=== PATIENT | female | born 1945 | race Caucasian/White ===

== ENCOUNTER → 2018-02-27 | Outpatient (CLI) | payer MEDICARE, OTHER ==
[~2018-02-27] MED LIST: ALL DAY ALLERGY10 M3 PO; ATIVAN1 MG PO; BUTALB-APAP-CA1 EACH PO; FLEXERIL PO; FLONASE 0.05%50 MCG NASAL; LEVAQUIN 750 M750 MG PO; LIPITOR 20 MG T20 M1 PO; NEPHROCAPS SOFT1 CAP PO; NORTRIPTYLINE H25 M3 PO; PAXIL10 MG PO; PREDNISONE 10 M10 MG PO; PULMICORT0.5 MG/22 INH; TRIAMTERENE-HC1 EAC3 PO; VITAMIN D1000 UNI1 PO; ZOFRAN ODT4 MG PO
== END ==
LOC: M.RAD 10:11
DX: M47.894 Other spondylosis, thoracic region (principal); M47.892 Other spondylosis, cervical region; J84.10 Pulmonary fibrosis, unspecified; M48.02 Spinal stenosis, cervical region

== ENCOUNTER 2018-07-16 13:43 | Inpatient (IN) | payer MEDICARE, OTHER ==
[~2018-07-16] VITALS: Ht 162.6 cm; Wt 81.6 kg
[2018-07-16 13:55] VITALS: BP 178/89
[2018-07-16] MEDS ORDERED: LIPITOR 20 MG T20 M1 PO (14:11)
[2018-07-16] MEDS ORDERED: NEPHROCAPS SOFT1 CAP PO (14:11)
[2018-07-16] MEDS ORDERED: ALL DAY ALLERGY10 M3 PO (14:12)
[2018-07-16] MEDS ORDERED: BUTALB-APAP-CA1 EACH PO (14:12)
[2018-07-16] MEDS ORDERED: PULMICORT0.5 MG/22 INH (14:12)
[2018-07-16] MEDS ORDERED: VITAMIN D1000 UNI1 PO (14:16)
[2018-07-16] MEDS ORDERED: FLONASE 0.05%50 MCG NASAL (14:17)
[2018-07-16] MEDS ORDERED: FLEXERIL PO (14:17)
[2018-07-16] MEDS ORDERED: ATIVAN1 MG PO (14:18)
[2018-07-16] MEDS ORDERED: NORTRIPTYLINE H25 M3 PO (14:19)
[2018-07-16] MEDS ORDERED: PAXIL10 MG PO (14:19)
[2018-07-16] MEDS ORDERED: TRIAMTERENE-HC1 EAC3 PO (14:19)
[2018-07-16 14:22] LABS: HEMATOCRIT 46.6 % (37.0-47.0); HEMOGLOBIN 15.3 gm/dL (12.0-15.0); MCH 30.7 pg (26.0-34.0); MCHC 32.8 g/dL (28.0-37.0); MCV 93.6 fL (80.0-100.0); MPV 9.7 fl. (7.2-11.1); NUCLEATED RBCS 0 /100WBC; PLATELET COUNT* 287 thou/uL (150-400); RBC 4.97 mil/uL (4.20-5.00); RDW-CV 14.2 % (10.5-14.5); WBC 21.8 thou/uL (4.0-11.0)
[2018-07-16 14:34] LABS: ANION GAP 10 mmol/L (7-16); BUN 25 mg/dL (7-18); CALCIUM 9.3 mg/dL (8.5-10.1); CHLORIDE 96 mmol/L (98-107); CO2 28 mmol/L (21-32); CREATININE 1.1 mg/dL (0.6-1.3); GLUCOSE 233 mg/dL (70-99); POTASSIUM 3.6 mmol/L (3.5-5.1); SODIUM 134 mmol/L (136-145)
[2018-07-16 14:37] LABS: APTT 32.1 Seconds (25.0-31.3); PROTIME 9.8 Seconds (9.20-11.50)
[2018-07-16 14:45] LABS: ALBUMIN 3.1 g/dL (3.4-5.0); ALKALINE PHOSPHATASE 245 U/L (46-116); NT-PRO BRAIN NAT PEPTIDE 793 pg/mL (<300); SGOT 87 U/L (15-37); SGPT 89 U/L (30-65); TOTAL BILIRUBIN 0.7 mg/dL (<0.1-1.0); TROPONIN-I LEVEL <0.06 ng/mL (<0.06)
--- NOTE | 2018-07-16 15:32 | NUR ---
[facility] NOTIFIED UPON PT RETURN FROM CT. PT CONNECTED TO O2 AND MONITOR
[2018-07-16 16:06] LABS: ABSOLUTE MONOCYTES 2.4 thou/uL (0.0-1.2); ABSOLUTE NEUTROPHILS 17.4 thou/uL (1.6-8.1)
[2018-07-16 16:07] LABS: LARGE PLATELETS OCCASIONAL; PLATELET ESTIMATE ADEQUATE
[2018-07-16] MEDS ORDERED: ZOFRAN ODT4 MG PO (16:15)
--- NOTE | 2018-07-16 16:34 | EKG ---
[place] [address] ELECTROCARDIOGRAM REPORT Name: YANCY CORONEL Room: [place] [address] ADM IN [facility]#: [id number] Admission: 07/16/18 Attend Phys: Celeste Polk Discharge: Date of : 49 Report #: [id number] THIS REPORT FOR: //name// [facility] ED Test Date: 2018-07-16 Test Time: 13:53:56 Pat Name: YANCY CORONEL Department: Room: [facility] Gender: F Pricing Lead: Teresa ESPINO : 1945 Requested By: Glen Jack Order Number: [id number] MD: Jorge Martínez Measurements Intervals [place] Rate: 109 P: 77 IN: 111 QRS: -52 QRSD: 79 T: 52 QT: 317 QTc: 427 Interpretive Statements Sinus tachycardia Ventricular premature complex LAD, consider left anterior fascicular block Probable anteroseptal infarct, old Baseline wander in lead(s) V4 No previous ECG available for comparison Electronically Signed On 07-16-2018 16:34:11 CDT by Jorge Martínez [email or web address] <ELECTRONICALLY SIGNED> By: Jorge Martínez MD, [facility] 07/16/18 1634 1353 1353 Jorge Martínez MD, [facility] /EPI
[2018-07-16 17:37] VITALS: BP 121/68
[2018-07-16 17:54] VITALS: BP 146/73
[2018-07-16 21:15] VITALS: BP 119/44
[2018-07-17] VITALS: BP 110/54
[2018-07-17 04:00] VITALS: BP 132/47
--- NOTE | 2018-07-17 05:04 | NUR ---
PATIENT REMAINS ALERT AND ORIENTED X4 THROUGHOUT SHIFT. VITAL SIGNS STABLE ON 3 LITERS NASAL CANNULA. IV PATENT IN THE LEFT FOREARM SALINE LOCKED. TRANSFERS STANDBY ASSIST TO THE RESTROOM. ASSESSMENT COMPLETE CHARTED. DENIES PAIN OR NAUSEA. REPOSITIONING SELF IN BED. RESTING COMRFORTABLY THROUGHOUT NIGHT WITH PERIODS OF COUGHING. DENIES SPUTUM. CALL LIGHT WITHIN REACH. BED IN LOW POSITION. NURSING WILL CONTINUE TO MONITOR.
[2018-07-17 09:15] VITALS: BP 122/66
[2018-07-17 11:30] VITALS: BP 173/70
--- NOTE | 2018-07-17 16:09 | 2DMMODE ---
[place] [address] 2 D/M-MODE ECHOCARDIOGRAM Name: YANCY CORONEL Room: [address] IN [facility]#: [id number] Admission: 07/16/18 Attend Phys: Letty Estrada Discharge: Date of : 49 Date of Service: 07/17/18 1608 Report #: [id number] THIS REPORT FOR: //name// APPROVED REPORT Study performed: 07/17/2018 14:13:47 EXAM: Comprehensive 2D, Doppler, and color-flow Echocardiogram Patient Location: In-Patient Room #: [facility] Status: routine BSA: 1.87 HR: 93 bpm BP: 173/70 mmHg Rhythm: NSR Other Information Study Quality: Good Indications Dyspnea pneumonia 2D Dimensions LVEF(%): 65.17 (>50%) IVSd: 10.54 (7-11mm) LVOT Diam: 18.54 (18-24mm) LVDd: 44.26 mm PWd: 9.52 (7-11mm) Ascending Ao: 28.46 (22-36mm) LVDs: 28.54 (25-40mm) Aortic Root: 28.51 mm Mariscal's LVEF: 65.17 % Volumes Left Atrial Volume (Systole) LA ESV Index: 20.40 mL/m2 Aortic Valve AoV Peak Mauro.: 1.86 m/s AO Peak Gr.: 13.81 mmHg LVOT Max P.89 mmHg AO Mean Gr.: 7.40 mmHg LVOT Mean P.36 mmHg LVOT Max V: 1.49 m/s AO V2 VTI: 37.12 cm LVOT Mean V: 0.96 m/s HAMILTON (VTI): 2.13 cm2 LVOT V1 VTI: 29.27 [place] [address] 2 D/M-MODE ECHOCARDIOGRAM Name: YANCY CORONEL Room: [address] IN [facility]#: [id number] Admission: 07/16/18 Attend Phys: Letty Estrada Discharge: Date of : 49 Date of Service: 07/17/18 1608 Report #: [id number] E/A Ratio: 0.99 MV Decel. Time: 184.40 ms MV E Max Mauro.: 0.96 m/s MV PHT: 53.48 ms MVA (PHT): 4.11 cm2 TDI E/Lateral E': 8.00 E/Medial E': 8.00 Medial E' Mauro.: 0.12 m/s Lateral E' Mauro.: 0.12 m/s Pulmonary Valve PV Peak Mauro.: 1.16 m/s PV Peak Gr.: 5.34 mmHg Tricuspid Valve RAP Estimate: 5.00 mmHg TR Peak Gr.: 39.57 mmHg RVSP: 44.57 mmHg PA Pressure: 44.57 mmHg Left Ventricle The left ventricle is normal size. There is normal LV segmental wall motion. There is normal left ventricular wall thickness. Left ventricular systolic function is normal. The left ventricular ejection fraction is within the normal range. LVEF is 65%. The left ventricular diastolic function is normal. Right Ventricle The right ventricle is normal size. The right ventricular systolic function is normal. Atria The left atrium size is normal. The right atrium size is normal. Aortic Valve Mild aortic valve sclerosis. No aortic regurgitation is present. No hemodynamically significant valvular aortic stenosis. Mitral Valve The mitral valve is normal in structure. Trace mitral regurgitation. No evidence of mitral valve stenosis. Tricuspid Valve The tricuspid valve is normal in structure. Mild tricuspid regurgitation. Mild [place] [address] 2 D/M-MODE ECHOCARDIOGRAM Name: YANCY CORONEL Room: [address]#: [id number] Admission: 07/16/18 Attend Phys: Letty Estrada Discharge: Date of : 49 Date of Service: 07/17/18 1608 Report #: [id number] Pulmonic Valve The pulmonary valve is normal in structure. There is no pulmonic valvular regurgitation. Great Vessels The aortic root is normal in size. IVC is normal in size and collapses with >50% inspiration Pericardium There is no pericardial effusion. <Conclusion> The left ventricle is normal size. There is normal left ventricular wall thickness. Left ventricular systolic function is normal. The left ventricular ejection fraction is within the normal range. LVEF is 65%. The left ventricular diastolic function is normal. The right ventricle is normal size. The left atrium size is normal. Mild aortic valve sclerosis. No aortic regurgitation is present. No hemodynamically significant valvular aortic stenosis. The mitral valve is normal in structure. Trace mitral regurgitation. The tricuspid valve is normal in structure. Mild tricuspid regurgitation. Mild pulmonary hypertension. IVC is normal in size and collapses with >50% inspiration There is no pericardial effusion. There is normal LV segmental wall motion. <ELECTRONICALLY SIGNED> By: Jorge Martínez MD, [facility] 07/17/18 1608 1608 1608 Jorge Martínez MD, [facility] /INF
--- NOTE | 2018-07-17 16:16 | NUR ---
NO COMPLAINTS OF PAIN THIS SHIFT. 02 3L NC REMAINS IN PLACE. PATIENT OF LARGE AMOUNT OF URINE THIS SHIFT. IV SL AFTER SCHED ABX. US OF LEFT LOWER EXTREMITY TO BE DONE THIS SHIFT ORDERED.
[2018-07-17 16:34] VITALS: BP 138/69
--- NOTE | 2018-07-17 16:52 | NUR ---
VISITED WITH PT. SHE WAS ALERT AND ORIENTED. STATED SHE LIVES ALONE BUT HER GRANDSON LIVES IN HER BASEMENT. HER SON,RONNIE,LIVES IN THE HOUSE BEHIND HER. SHE IS NORMALLY INDEPENDENT. DRIVES,SHOPS,COOKS,DOES LAUNDRY,ETC. SHE SAID SHE HAS NO PROBLEM GETTING HER MEDICATIONS. CM WILL FOLLOW FOR DISCHARGE.
[2018-07-17 20:00] VITALS: BP 130/62
[2018-07-18 00:36] VITALS: BP 137/71
[2018-07-18 04:52] VITALS: BP 128/75
[2018-07-18 08:11] VITALS: BP 129/59
[2018-07-18 16:07] VITALS: BP 124/67
--- NOTE | 2018-07-18 17:55 | NUR ---
PT IS ON 3 LITERS OF 02 BY WY WITH SPO2 SAT AT 95%. DISCUSSED SMOKING CESSATION WITH PT. PT STATED THEY HAVE BEEN TRYING BUT FIND IT DIFFICULT. PT DENIED RECEIVING ANY NEW INFORMATION AT THIS TIME. NICOTINE PATCH WAS ORDERED FOR THE PT. PT HAS BEEN UNABLE TO GET SPUTUM UP, COUGHING WITH GOOD EFFORT. CALL LIGHT IN REACH AND BED ALARM ON. WILL CONTINUE TO MONITOR.
--- NOTE | 2018-07-18 18:06 | NUR ---
NURSING DOCUMENTATION BY HALINA Hook RN REVIEWED
[2018-07-18 20:00] VITALS: BP 136/60
--- NOTE | 2018-07-19 04:45 | NUR ---
PATIENT SLEPT WELL DURING THIS SHIFT. PT ON O2 @ 3 LITERS PER NASAL CANNULA. PT USES CALL LIGHT APPROPRIATELY FOR ASSISTANCE TO BATHROOM. NO CHANGES IN CONDITION FROM PREVIOUS ASSESSMENT. PT PROGRESSING TOWARDS GOALS. WILL CONTINUE TO MONITOR.
[2018-07-19 08:00] VITALS: BP 145/85
[2018-07-19 11:45] VITALS: BP 159/82
[2018-07-19 15:40] VITALS: BP 130/70
--- NOTE | 2018-07-19 16:36 | NUR ---
PATIENT HAS REMAINED ALERT AND ORIENTED. PRN MIGRAINE MED FOR HEADACHE. TITRATED O2 TO 1L PER NASAL CANNULA, SAT 95%. PATIENT HAS PRODUCTIVE COUGH. BREATHING TREATMENTS SCHEDULED. NICOTINE PATCH. SOB WITH EXERTION. TOLERATING MEALS. IV ABX, AND SOLUMEDROL GIVEN ORDERED. AMBULATED IN HALLWAY. BED ALARM IN USE. CALL LIGHT WITHIN REACH. WILL CONTINUE TO MONITOR.
[2018-07-19 20:00] VITALS: BP 150/70
[2018-07-20 08:00] VITALS: BP 128/69
[2018-07-20 16:00] VITALS: BP 132/67
--- NOTE | 2018-07-20 17:42 | NUR ---
PATIENT ALERT AND ORIENTED X 4. VITAL SIGNS STABLE ON 1L O2 NASAL CANULA. UP WITH STAND BY ASSISTANCE TO THE BATHROOM. AMBULATED IN HALLWAY. IV PATENT AND SALINE LOCKED. DENIES PAIN AND NAUSEA. BREATHING TREATMENTS SCHEDULED. SHORTNESS OF BREATH WITH EXERTION. LUNG SOUNDS DIMINISHED WITH WHEEZES. COUGH PRODUCTIVE WITH THICK BEIGE SPUTUM. HOURLY ROUNDS MAINTAINED THROUGHOUT THE SHIFT. CALL LIGHT WITHIN REACH. NURSING WILL CONTINUE TO MONITOR.
[2018-07-20 19:40] VITALS: BP 119/63
[2018-07-21 03:58] LABS: HEMATOCRIT 44.9 % (37.0-47.0); HEMOGLOBIN 14.7 gm/dL (12.0-15.0); MCH 30.7 pg (26.0-34.0); MCHC 32.7 g/dL (28.0-37.0); MCV 94.2 fL (80.0-100.0); NUCLEATED RBCS 0 /100WBC; PLATELET COUNT* 315 thou/uL (150-400); RBC 4.77 mil/uL (4.20-5.00); RDW-CV 14.5 % (10.5-14.5); WBC 23.1 thou/uL (4.0-11.0)
[2018-07-21 04:35] LABS: ALBUMIN 2.9 g/dL (3.4-5.0); CALCIUM 8.6 mg/dL (8.5-10.1); CREATININE 0.7 mg/dL (0.6-1.3); MAGNESIUM 2.4 mg/dL (1.8-2.4); POTASSIUM 4.9 mmol/L (3.5-5.1); TOTAL BILIRUBIN 0.2 mg/dL (<0.1-1.0); TOTAL PROTEIN 6.7 g/dL (6.4-8.2)
--- NOTE | 2018-07-21 04:42 | NUR ---
PATIENT REMAINS ALERT AND ORIENTED X4 THROUGHOUT SHIFT. VITAL SIGNS STABLE ON ROOM AIR. PATIENT CHOSE TO REMOVE OXYGEN AND HAS MAINTAINED SATS ABOVE 93% ON ROOM AIR. IV PATENT IN THE LEFT FOREARM SALINE LOCKED. TOLERATING DIET. AMBULATING AD CHRIS THROUGH THE BORGES AND TO THE RESTOOM. DECLINES SCD'S. HEADACHE MANAGED WITH PO MEDICATION PER ORDERS. DENIES NAUSEA. REPOSITIONING SELF IN BED. RESTING COMFORTABLY THROUGHOUT NIGHT. HOURLY ROUNDING COMPLETE. CALL LIGHT WITHIN REACH. NURSING WILL CONTINUE TO MONITOR.
[2018-07-21 05:46] LABS: ABSOLUTE LYMPHOCYTES 2.8 thou/uL (0.8-5.3); ABSOLUTE MONOCYTES 1.2 thou/uL (0.0-1.2); ABSOLUTE NEUTROPHILS 19.2 thou/uL (1.6-8.1); METAMYELOCYTES 1 %; MYELOCYTES 3 %
[2018-07-21 05:47] LABS: ANISOCYTOSIS 1+; PLATELET ESTIMATE ADEQUATE; POIKILOCYTOSIS 1+
[2018-07-21 08:30] VITALS: BP 115/48
[2018-07-21] MEDS ORDERED: LEVAQUIN 750 M750 MG PO (11:12)
[2018-07-21] MEDS ORDERED: PREDNISONE 10 M10 MG PO (11:12)
--- NOTE | 2018-07-21 11:35 | NUR ---
PT.TO DISCHARGE HOME TODAY. HAD BEEN TITRATED TO RA. ORDERED RA AND EXERCISE SAT.TEST BY RAltonT. PT.NEEDS O2 AT 1L/NC WITH ACTIVITY. FAXED FACE SHEET,ORDER, SATS AND PT.CARE NOTE TO [facility] [phone]. THEY WILL DELIVER PORTABLE TANK TO HOSPITAL ROOM.
[2018-07-21 11:42] VITALS: BP 115/48
[2018-07-21 11:49] VITALS: BP 115/48
[2018-07-21 11:54] VITALS: BP 115/48
[2018-07-21 13:27] VITALS: BP 115/48
--- NOTE | 2018-07-21 13:28 | NUR ---
PT WAS GIVEN DISCHARGE PACKET AND PRESCRIPTIONS. PRESCRIPTION INFORMATION PACKETS GIVEN TO PT WELL. PT DENIED ANY QUESTIONS OR CONCERNS AT THIS TIME. PT LEFT WITH GRANDSON WITH NURSING STAFF VIA WHEELCHAIR.
--- NOTE | 2018-07-24 09:21 | CON ---
[address] [address] CONSULTATION Name: YANCY CORONEL Room: [address] IN ..#: [id number] Admission: 07/16/18 Attend Phys: Celeste Polk Discharge: 07/21/18 Date of : 49 Report #: [id number] THIS REPORT FOR: //name// CC: Letty Randall DATE OF SERVICE: 07/17/[address] Estrada. INDICATION FOR CONSULTATION: COPD, exacerbation/pulmonary infiltrates. HISTORY OF PRESENT ILLNESS: This is a 73-year-old female. She reports a diagnosis of COPD. She is not on oxygen and not on long-term prednisone, does use some inhalers at home. She is an active smoker. The patient reports that she has some shortness of breath at rest on exertion, only has an occasional cough. The patient says that for the last several days, there is a considerable increase in the symptoms, particularly she has been coughing up large amounts of thick brown as well as yellow sputum. In fact, she had some in front of her at the time of my examination. She also has had a significant increase in shortness of breath. The patient, however, does not report any chest pain. She does report that she has had some nasal discharge. There is no sore throat. She says that she has been sweating a lot; however, she is not aware of any fever. In addition, she has had pain in the left leg. The patient says she has had some mild diarrhea recently. She answered to the negative for 12 questions for review of systems, except as mentioned above. PAST MEDICAL HISTORY: COPD. I do not have previous PFTs available. She is not on long-term oxygen and not on long-term prednisone. Nasal allergies, hypertension, depression, appendectomy, hysterectomy, migraines, anxiety, osteoarthritis, hyperlipidemia, insomnia, vitamin D deficiency, colon polyps, obesity. Also I do not have any measure of her lung function or left ventricular ejection fraction available at this time. SOCIAL HISTORY: Smoker, 1 pack a day, still smokes, has been smoking for several decades. No known history of heavy alcohol use or illegal drug use. Note that the patient does use benzodiazepine prescribed to her. Also, she is on Fioricet, which does contain barbiturate. ALLERGIES: She says that she had hives when she was a teenager with PENICILLIN. FAMILY HISTORY: Hypertension. CURRENT MEDICATIONS: List in CMP.LY reviewed. HOME MEDICATIONS: List also in [place] [address] CONSULTATION Name: YANCY CORONEL Room: [address]#: [id number] Admission: 07/16/18 Attend Phys: Celeste Polk Discharge: 07/21/18 Date of : 49 Report #: [id number] PHYSICAL EXAMINATION: GENERAL: She is alert, awake and oriented, sitting in bed, has thick brown sputum in front of her, which she says she just coughed up. VITAL SIGNS: Has a pulse of 76 and a blood pressure 122/66, saturating 95%. She is on 3 liters nasal cannula, respiratory rate is mildly elevated to 20. She is afebrile with a temperature of 36.3. Her T-max was 37.0. HEENT: Head is normocephalic and atraumatic. Pupils are equal and reactive. There is no throat erythema. NECK: Does not show raised JVP, asymmetry, mass or lymph nodes. CHEST: Symmetrical expansion on inspection and palpation. On auscultation, breath sounds are bilaterally equal but significantly decreased. Expirations are prolonged. I do not hear any added sounds. HEART: Regular, no murmur. ABDOMEN: Soft and nontender. EXTREMITIES: Lower extremities show no edema. She complains of some pain and tenderness in her left knee and upper calf. He complains of some pain in the left knee and upper left calf. SKIN: Dry and intact. NEUROLOGICAL: Moves all extremities bilaterally equally and spontaneously with no focal deficit identified. The patient did have a CTA chest performed yesterday, in summary shows atypical infiltrates bilaterally, underlying interstitial lung disease cannot be ruled out. There is also some mediastinal lymphadenopathy noted. LABORATORY DATA: The patient's lab work from last night including CBC, chemistries as well as coagulation studies in [facility] reviewed. There is no clot noted in the CT chest. ASSESSMENT AND PLAN: 1. Acute respiratory insufficiency. The patient appears to have a chronic obstructive pulmonary disease exacerbation. In addition, she has atypical infiltrates. This appears to be the etiology of her acute respiratory insufficiency. 2. Pulmonary infiltrate/mediastinal lymphadenopathy. I reviewed the CT chest films as well as report. There are atypical infiltrates noted bilaterally. The [address] [address] CONSULTATION Name: YANCY CORONEL Room: [address] IN [place].#: [id number] Admission: 07/16/18 Attend Phys: Celeste Polk Discharge: 07/21/18 Date of : 49 Report #: [id number] radiologist raised the possibility of this being Mycobacterium avium. While I feel that this will certainly be possible, my suspicion at this time is not high as the patient has fairly acute complaints and this is more consistent with an acute infection. Underlying interstitial lung disease can also lead to this picture. I do not have any previous CT available for comparison. Also, as noted the patient does have some mediastinal lymphadenopathy as well. This is likely reactive; however, other etiologies not ruled out at this time. The patient currently is on Levaquin as well as Zithromax. I discontinued either one and adding cephalosporin but I held off for now considering allergy with penicillin. I will go ahead and obtain a sputum culture as well as a nasal swab for methicillin-resistant Staphylococcus aureus. Urine for legionella as well as pneumococcal antigen and mycoplasma serologies are also ordered. I would plan to continue Levaquin for about 10 days. If the patient continues to improve, then we will plan to discontinue Zithromax in the next 1-2 days. Suggest obtaining a repeat CT chest in about a month. If there is no improvement in the CT chest at that time, then a bronchoscopy could be a subsequent consideration. If that is the case, then we can review as to whether it would be possible to biopsy one of the hilar lymph nodes with endobronchial ultrasound at that time as well. 3. Chronic obstructive pulmonary disease exacerbation. The patient is on Solu-Medrol as well as nebulized bronchodilators. I agree with the same and we will continue. 4. Anxiety/history of migraines. I suggest limiting use of sedative medications if possible, perhaps may consider taking off the barbiturates first. 5. Leg pain/evaluation for thromboembolic phenomena. The CT chest does not show any clot. I ordered venous Dopplers of the left leg as well. 6. Deep venous thrombosis prophylaxis, Lovenox. Thanks for this consultation. <ELECTRONICALLY SIGNED> By: Jagdeep Clarke MD 07/24/18 0921 1201 2318Aandriy Aggarwal MD /nt
== END 2018-07-21 14:04 | disposition home or self-care (01) | DRG 177 ==
LOC: M.ERS 13:43 → M.2W 16:01 → M.TBA-ER 16:01 → M.ORTHSURG 16:01 → M.2W 17:55 → M.ORTHSURG 07-17 07:44
PROVIDERS: Emergency Medicine Emergency Medical Services; Internal Medicine Critical Care Medicine; ADMIT Internal Medicine
DX: J15.8 Pneumonia due to other specified bacteria (principal); J96.01 Acute respiratory failure with hypoxia; R65.10 Systemic inflammatory response syndrome (SIRS) of non-infectious origin without acute organ dysfunction; J44.0 Chronic obstructive pulmonary disease with (acute) lower respiratory infection; J44.1 Chronic obstructive pulmonary disease with (acute) exacerbation; I10 Essential (primary) hypertension; F32.9 Major depressive disorder, single episode, unspecified; G43.909 Migraine, unspecified, not intractable, without status migrainosus; F41.9 Anxiety disorder, unspecified; M19.90 Unspecified osteoarthritis, unspecified site; E78.5 Hyperlipidemia, unspecified; G47.00 Insomnia, unspecified; R59.1 Generalized enlarged lymph nodes; E66.9 Obesity, unspecified; F17.210 Nicotine dependence, cigarettes, uncomplicated; Z68.30 Body mass index [BMI] 30.0-30.9, adult; Z90.49 Acquired absence of other specified parts of digestive tract; Z90.710 Acquired absence of both cervix and uterus; Z71.6 Tobacco abuse counseling; Z79.51 Long term (current) use of inhaled steroids; Z79.899 Other long term (current) drug therapy; Z88.0 Allergy status to penicillin; Z82.49 Family history of ischemic heart disease and other diseases of the circulatory system

== ENCOUNTER → 2020-08-25 | Outpatient (CLI) | payer MEDICARE, OTHER ==
[2020-08-25 15:42] LABS: ABSOLUTE BASOPHILS 0.1 thou/uL (0.0-0.2); ABSOLUTE EOSINOPHILS 0.1 thou/uL (0.0-0.7); ABSOLUTE LYMPHOCYTES 2.3 thou/uL (0.8-5.3); ABSOLUTE MONOCYTES 1.2 thou/uL (0.0-1.2); ABSOLUTE NEUTROPHILS 8.2 thou/uL (1.6-8.1); EOSINOPHILS 1.1 %; HEMATOCRIT 38.5 % (37.0-47.0); HEMOGLOBIN 12.6 gm/dL (12.0-15.0); LYMPHOCYTES 19.5 %; MCH 30.6 pg (26.0-34.0); MCHC 32.7 g/dL (28.0-37.0); MCV 93.6 fL (80.0-100.0); MONOCYTES 9.7 %; MPV 8.5 fl. (7.2-11.1); NUCLEATED RBCS 0 /100WBC; PLATELET COUNT* 263 thou/uL (150-400); POLYS 68.7 %; RBC 4.12 mil/uL (4.20-5.00); RDW-CV 13.9 % (10.5-14.5)
[2020-08-25 15:56] LABS: ALBUMIN 3.8 g/dL (3.4-5.0); CALCIUM 8.7 mg/dL (8.5-10.1); CREATININE 0.7 mg/dL (0.6-1.3); DIRECT BILIRUBIN 0.1 mg/dL (<0.1-0.3); POTASSIUM 3.3 mmol/L (3.5-5.1); TOTAL BILIRUBIN 0.5 mg/dL (<0.1-1.0); TOTAL PROTEIN 7.5 g/dL (6.4-8.2)
[2020-08-25 16:49] LABS: ESR (SEDRATE) 25 mm/hr (0-30)
[2020-08-26 02:06] LABS: GLYCOHEMOGLOBIN (HGB A1C) 5.6 % (4.8-5.6)
== END ==
LOC: M.ULTRA 13:57
PROVIDERS: ATTEND Registered Nurse Diabetes Educator
DX: Z13.1 Encounter for screening for diabetes mellitus (principal); R79.81 Abnormal blood-gas level; R06.02 Shortness of breath; L03.116 Cellulitis of left lower limb; Z79.899 Other long term (current) drug therapy; Z68.28 Body mass index [BMI] 28.0-28.9, adult; R60.9 Edema, unspecified; L53.9 Erythematous condition, unspecified; M79.662 Pain in left lower leg

== ENCOUNTER 2021-07-19 09:40 | Emergency (ER) | payer MEDICARE, OTHER ==
[~2021-07-19] VITALS: Ht 162.6 cm; Wt 61.1 kg
[2021-07-19 10:15] LABS: ABSOLUTE BASOPHILS 0.1 thou/uL (0.0-0.2); ABSOLUTE MONOCYTES 0.9 thou/uL (0.0-1.2); ABSOLUTE NEUTROPHILS 5.5 thou/uL (1.6-8.1); BASOPHILS 1.1 %; EOSINOPHILS 0.5 %; HEMATOCRIT 43.7 % (37.0-47.0); HEMOGLOBIN 14.3 gm/dL (12.0-15.0); LYMPHOCYTES 23.7 %; MCH 28.6 pg (26.0-34.0); MCHC 32.8 g/dL (28.0-37.0); MCV 87.1 fL (80.0-100.0); MONOCYTES 10.8 %; MPV 8.9 fl. (7.2-11.1); NUCLEATED RBCS 0 /100WBC; PLATELET COUNT* 255 thou/uL (150-400); POLYS 63.9 %; RBC 5.01 mil/uL (4.20-5.00); RDW-CV 14.8 % (10.5-14.5); WBC 8.6 thou/uL (4.0-11.0)
[2021-07-19 10:28] LABS: CALCIUM 11.2 mg/dL (8.5-10.1); CREATININE 0.8 mg/dL (0.6-1.3); POTASSIUM 3.6 mmol/L (3.5-5.1)
[2021-07-19 10:33] LABS: ALBUMIN 3.4 g/dL (3.4-5.0); TOTAL BILIRUBIN 0.4 mg/dL (<0.1-1.0); TOTAL PROTEIN 7.9 g/dL (6.4-8.2)
[2021-07-19] MEDS ORDERED: ZPAK PO (10:55)
[2021-07-19] MEDS ORDERED: PREDNISONE 10 M10 M1 PO (10:55)
[2021-07-19] MEDS ORDERED: ACYCLOVIR 800800 MG PO (10:55)
[2021-07-19] MEDS ORDERED: DOXYCYCLINE 10100 M2 PO (11:02)
--- NOTE | 2021-07-19 11:07 | EKG ---
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1945 Requested By: Glen Jack Order Number: [id number] MD: Dany Adams Measurements Intervals [place] Rate: 102 P: 76 MD: 110 QRS: -53 QRSD: 67 T: QT: 424 QTc: 553 Interpretive Statements Sinus tachycardia old anterior infarction Ventricular premature complex Probable left atrial enlargement LAD, consider left anterior fascicular block Nonspecific T abnormalities, lateral leads Prolonged QT interval Baseline wander in lead(s) V2 Compared to ECG 07/16/2018 13:53:56 T-wave abnormality now present Prolonged QT interval now present Electronically Signed On 07-19-2021 11:07:10 CDT by Dany Adams [email or web address] <ELECTRONICALLY SIGNED> By: Dany Adams MD, [facility] 07/19/21 1107 1051 1051 Dany Adams MD, [facility] /EPI
[2021-07-19 11:41] VITALS: BP 94/56
== END 2021-07-19 11:43 | disposition home or self-care (01) ==
LOC: M.ERS 09:40
PROVIDERS: Emergency Medicine Emergency Medical Services
DX: G51.0 Bell's palsy (principal); I10 Essential (primary) hypertension; F32.9 Major depressive disorder, single episode, unspecified; Z90.49 Acquired absence of other specified parts of digestive tract; Z90.711 Acquired absence of uterus with remaining cervical stump; J44.9 Chronic obstructive pulmonary disease, unspecified; G43.909 Migraine, unspecified, not intractable, without status migrainosus; M19.90 Unspecified osteoarthritis, unspecified site; F41.9 Anxiety disorder, unspecified; E78.5 Hyperlipidemia, unspecified; E66.9 Obesity, unspecified; Z68.23 Body mass index [BMI] 23.0-23.9, adult; Z79.899 Other long term (current) drug therapy

== ENCOUNTER → 2021-07-24 | Outpatient (CLI) | payer MEDICARE, OTHER ==
[~2021-07-24] MED LIST changes: +ACYCLOVIR 800800 MG PO; +DOXYCYCLINE 10100 M2 PO; +PREDNISONE 10 M10 M1 PO; +ZPAK PO
[2021-07-24 13:55] LABS: ABSOLUTE BASOPHILS 0.1 thou/uL (0.0-0.2); ABSOLUTE LYMPHOCYTES 3.1 thou/uL (0.8-5.3); ABSOLUTE MONOCYTES 1.4 thou/uL (0.0-1.2); ABSOLUTE NEUTROPHILS 9.6 thou/uL (1.6-8.1); BASOPHILS 0.8 %; EOSINOPHILS 0.1 %; HEMATOCRIT 47.4 % (37.0-47.0); HEMOGLOBIN 15.8 gm/dL (12.0-15.0); LYMPHOCYTES 21.5 %; MCH 28.6 pg (26.0-34.0); MCHC 33.4 g/dL (28.0-37.0); MCV 85.4 fL (80.0-100.0); MONOCYTES 10.1 %; MPV 9.4 fl. (7.2-11.1); NUCLEATED RBCS 0 /100WBC; PLATELET COUNT* 327 thou/uL (150-400); POLYS 67.5 %; RBC 5.55 mil/uL (4.20-5.00); RDW-CV 15.1 % (10.5-14.5); WBC 14.3 thou/uL (4.0-11.0)
[2021-07-24 14:01] LABS: CREATININE 1.5 mg/dL (0.6-1.3); PHOSPHORUS* 3.7 mg/dL (2.5-4.9)
[2021-07-24 14:09] LABS: ALBUMIN 3.6 g/dL (3.4-5.0); CALCIUM 12.2 mg/dL (8.5-10.1); CREATININE 1.4 mg/dL (0.6-1.3); DIRECT BILIRUBIN 0.1 mg/dL (<0.1-0.3); POTASSIUM 4.1 mmol/L (3.5-5.1); TOTAL BILIRUBIN 0.5 mg/dL (<0.1-1.0); TOTAL PROTEIN 8.7 g/dL (6.4-8.2)
[2021-07-24 14:15] LABS: CALCIUM 12.5 mg/dL (8.5-10.1)
== END ==
LOC: M.CT 12:00
PROVIDERS: ATTEND Registered Nurse Diabetes Educator
DX: C79.51 Secondary malignant neoplasm of bone (principal); C78.7 Secondary malignant neoplasm of liver and intrahepatic bile duct; R91.8 Other nonspecific abnormal finding of lung field; R59.0 Localized enlarged lymph nodes; R74.8 Abnormal levels of other serum enzymes; R07.9 Chest pain, unspecified; F17.200 Nicotine dependence, unspecified, uncomplicated; R11.0 Nausea; E83.52 Hypercalcemia; Z79.899 Other long term (current) drug therapy

== ENCOUNTER 2021-07-26 09:23 | Emergency (ER) | payer MEDICARE, OTHER ==
[~2021-07-26] VITALS: Ht 162.6 cm; Wt 61.0 kg
[2021-07-26 11:01] LABS: ABSOLUTE BASOPHILS 0.1 thou/uL (0.0-0.2); ABSOLUTE LYMPHOCYTES 2.6 thou/uL (0.8-5.3); ABSOLUTE MONOCYTES 1.5 thou/uL (0.0-1.2); ABSOLUTE NEUTROPHILS 10.3 thou/uL (1.6-8.1); BASOPHILS 0.5 %; EOSINOPHILS 0.1 %; HEMATOCRIT 47.9 % (37.0-47.0); HEMOGLOBIN 15.8 gm/dL (12.0-15.0); LYMPHOCYTES 18.2 %; MCH 28.3 pg (26.0-34.0); MCHC 33.1 g/dL (28.0-37.0); MCV 85.7 fL (80.0-100.0); MONOCYTES 10.2 %; MPV 9.8 fl. (7.2-11.1); NUCLEATED RBCS 0 /100WBC; PLATELET COUNT* 300 thou/uL (150-400); RBC 5.59 mil/uL (4.20-5.00); RDW-CV 15.3 % (10.5-14.5); WBC 14.5 thou/uL (4.0-11.0)
[2021-07-26 12:17] LABS: ALBUMIN 3.4 g/dL (3.4-5.0); CREATININE 1.5 mg/dL (0.6-1.3); POTASSIUM 4.3 mmol/L (3.5-5.1); TOTAL BILIRUBIN 0.3 mg/dL (<0.1-1.0)
[2021-07-26 12:20] LABS: CALCIUM 12.8 mg/dL (8.5-10.1)
--- NOTE | 2021-07-26 12:26 | EKG ---
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: [facility] [place] : 1945 Requested By: Otilia Cleveland Order Number: [id number] MD: Dany Adams Measurements Intervals [place] Rate: 117 P: 87 AL: 103 QRS: -58 QRSD: 84 T: 104 QT: 377 QTc: 526 Interpretive Statements Sinus tachycardia Inferior infarct, old Prolonged QT interval Compared to ECG 07/19/2021 10:51:37 Ventricular premature complex(es) no longer present Myocardial infarct finding still present Electronically Signed On 07-26-2021 12:25:37 CDT by Dany Adams [email or web address] <ELECTRONICALLY SIGNED> By: Dany Adams MD, [facility] 07/26/21 1225 1029 1029 Dany Adams MD, [facility] /EPI
--- NOTE | 2021-07-27 16:24 | NUR ---
TRANFER TEAM CALL CONTACTED [facility], CLOSED FOR TRANSFERS, [facility] NO BEDS FOR TELE, [facility] WAITING ON TRANSFER PROVIDER TO CALL BACK, [facility] FAXED FACESHEET TO PAU FOR TRANSFER, [facility] CONTACTED PT. WAS ACCEPTED AT [facility]. BED 4241 REPORT [phone] JOSE MARTIN GIBBONS. FOLLOW FOR SAFE D/C PLANNING.
[2021-07-27 18:35] VITALS: BP 110/57
== END 2021-07-27 18:35 | disposition short-term general hospital (02) ==
LOC: M.ERS 09:23
PROVIDERS: Physician Assistant
DX: C34.92 Malignant neoplasm of unspecified part of left bronchus or lung (principal); Z20.822 Contact with and (suspected) exposure to COVID-19; C79.51 Secondary malignant neoplasm of bone; I10 Essential (primary) hypertension; J44.9 Chronic obstructive pulmonary disease, unspecified; G43.909 Migraine, unspecified, not intractable, without status migrainosus; M19.90 Unspecified osteoarthritis, unspecified site; E78.5 Hyperlipidemia, unspecified; E66.9 Obesity, unspecified; Z68.23 Body mass index [BMI] 23.0-23.9, adult; Z88.0 Allergy status to penicillin